=== PATIENT | female | born 1960 | race Caucasian/White ===

== ENCOUNTER 2020-07-22 18:13 | Emergency (ER) | payer OTHER ==
[~2020-07-22] VITALS: Ht 160 cm; Wt 63.5 kg
--- NOTE | 2020-07-22 19:32 | NUR ---
CT at bedside.
[2020-07-22] MEDS ORDERED: HYDR-4209 PO (19:42)
[2020-07-22] MEDS ORDERED: ONDA4TAB5 PO (19:42)
[2020-07-22] MEDS ORDERED: OXYCODONE/APAP 5-325 MG TABLET PO ONE (20:15)
[2020-07-22] MEDS ORDERED: OXYCODONE/APAP 5-325 MG TABLET ONE (20:25)
--- NOTE | 2020-07-22 20:29 | NUR ---
Patient discharged to home in stable condition. Crutches and knee immobalizer training and education provided. Written and verbal after care instructions given. Patient verbalizes understanding of instructions. Stressed follow up or return to ER for worsening s/s. Steady gait noted, no c/o pain or discomfort. A/O x4.
[2020-07-22 20:31] VITALS: BP 132/72
== END 2020-07-22 20:25 | disposition home or self-care (01) ==
LOC: ER 18:17
DX: S83.91XA Sprain of unspecified site of right knee, initial encounter (principal); W18.30XA Fall on same level, unspecified, initial encounter; Y92.89 Other specified places as the place of occurrence of the external cause
CPT/HCPCS: A4663

== ENCOUNTER 2023-02-01 09:42 | Emergency (ER) | payer BC ==
[~2023-02-01] VITALS: Ht 160 cm; Wt 63.5 kg
[~2023-02-01 09:42] MED LIST: HYDR-4209 PO; ONDA4TAB5 PO
[2023-02-01] MEDS ORDERED: CEphaleXIN 500 MG CAPSULE ONE (10:12)
[2023-02-01] MEDS ORDERED: CEPH500C2 PO (10:14)
[2023-02-01] MEDS ORDERED: CEphaleXIN 500 MG CAPSULE PO ONE (10:15)
[2023-02-01 10:19] VITALS: BP 127/68; TEMP 98.5; O2SAT 99
== END 2023-02-01 10:19 | disposition home or self-care (01) ==
LOC: ER 09:42
DX: S61.412D Laceration without foreign body of left hand, subsequent encounter (principal); Z79.899 Other long term (current) drug therapy; X58.XXXD Exposure to other specified factors, subsequent encounter
CPT/HCPCS: A4606; A4663

== ENCOUNTER 2023-02-06 10:06 | Emergency (ER) | payer BC ==
[~2023-02-06] VITALS: Ht 160 cm; Wt 63.5 kg
[~2023-02-06 10:06] MED LIST changes: +CEPH500C2 PO
[2023-02-06] MEDS ORDERED: IV NORMAL SALINE 1000 ML BAG IV ONE (10:30)
[2023-02-06] MEDS ORDERED: LET TOPICAL SOLUTION 8 ML UDC ONE (11:12)
[2023-02-06] MEDS ORDERED: LET TOPICAL SOLUTION 8 ML UDC TP ONE (11:15)
[2023-02-06 12:11] VITALS: BP 136/78; TEMP 98.2; O2SAT 98
== END 2023-02-06 12:12 | disposition home or self-care (01) ==
LOC: ER 10:06
DX: S61.213D Laceration without foreign body of left middle finger without damage to nail, subsequent encounter (principal); Z79.899 Other long term (current) drug therapy; X58.XXXD Exposure to other specified factors, subsequent encounter
CPT/HCPCS: A4606; A4663